=== PATIENT | female | born 1980 | race Caucasian/White ===

== ENCOUNTER → 2016-04-13 | Outpatient (CLI) | payer OTHER ==
--- NOTE | 2016-04-13 11:23 | US ---
Dear Josselyn Zabala MD I had the pleasure of seeing your patient, INEZ BENZ, in Cardiology Clinic today. As you know, INEZ BENZ is a 35 year old woman with an intrauterine at approximately 32 wee ks gestation. We were asked to see her in consultation due to family history of congenital heart dise ase. Specifically, her son was born with a ventricular septal defect. Past Medical History: non-contributory Medications: None Family history: As above. Her son, Henry, was born with a ventricular septal defect in [place]. He h as not required surgical intervention for the VSD. Social History: She is and lives with her and son in [place]. Echocardiogram: A complete 2D and Doppler echocardiogram was performed with good image quality. This reveals a four-chamber heart correctly oriented in the left chest. There is normal segmental cardiac anatomy. There is no evidence of chamber enlargement or hypertrophy. The aorta and pulmonary artery are arias ectly oriented. The mitral, tricuspid, aortic and pulmonic valves are visualized and are unremarkabl e by Doppler interrogation. The aortic arch and ductal arch are of normal caliber with normal flow p atterns across both the ductus arteriosus and aortic arch. Two superior pulmonary veins are seen ent ering the left atrium in normal fashion. There is a normal right to left flow pattern across the pat ent foramen ovale with the flap of the foramen ovale seen in the left atrium. The heart rate i s within normal limits for gestational age. There is normal atrioventricular mechanical synchrony wi th no dysrhythmia was noted throughout the duration of the study. There is no pericardial effusion. This study cannot rule out subtle atrial or ventricular septal defects. Impression: This is a normal echocardiogram for gestational age. I discussed these findings in detail with INEZ BENZ and attempted to answer her questions to th e best of my ability. We specifically discussed the limitations of echocardiography in diagnosi ng small septal defects, minor valve abnormalities, and problems that may present after the transitio n to life such as coarctation of the aorta. Despite these limitations, I have not scheduled her for any further follow-up in Cardiology Cli [facility], however I would be more than happy to see her again at any time should any further concerns deidre e. I have also not recommended any alteration to her pre or care. Should there be any con cerns regarding the cardiovascular system after the baby is born, we would be happy to re-evaluate th e infant at anytime. Thank you very much for allowing me to participate in INEZ BENZ 's care. Please do not hesitat e to contact my office if I can be of any further assistance. My office number is [phone] or my cell phone is [phone]. Sincerely yours, Julieth Vazquez MD Interface Developer of Pediatrics, Pediatric Cardiology [facility] Note: Greater than 50% of this visit was spent in direct [id number] contact and counseling. Total v isit length was 30 minutes.
== END ==
LOC: FIMAGING 09:09
PROVIDERS: ATTEND Obstetrics & Gynecology
DX: O09.893 Supervision of other high risk pregnancies, third trimester (principal); Z3A.32 32 weeks gestation of pregnancy; Z82.49 Family history of ischemic heart disease and other diseases of the circulatory system

== ENCOUNTER → 2016-05-11 | Outpatient (CLI) | payer OTHER | LOC: FIMAGING 09:53 | PROVIDERS: ATTEND Obstetrics & Gynecology | DX: Z36 Encounter for antenatal screening of mother (principal); O34.219 Maternal care for unspecified type scar from previous cesarean delivery; Z3A.36 36 weeks gestation of pregnancy ==

== ENCOUNTER 2016-05-28 05:41 | Inpatient (IN) | payer OTHER ==
[2016-05-28] MEDS ORDERED: LR 500 ML IV ONE (05:53)
[2016-05-28] MEDS ORDERED: ceFAZolin 2 GM/DEXTROSE 100 ML IV ONE (05:53)
[2016-05-28] MEDS ORDERED: CITRIC ACID/SODIUM CITRATE 30 ML UDCUP PO ONE (05:53)
[2016-05-28] MEDS ORDERED: LR 1,000 ML IV SCH (06:00)
[2016-05-28] MEDS ORDERED: OXYTOCIN 10 UNIT/ML VIAL ONE (06:20)
[2016-05-28] MEDS ORDERED: MISOPROSTOL 200 MCG TAB ONE (06:20)
[2016-05-28 06:22] LABS: % IMMATURE GRANULYOCYTES 0.4 % (0.0-1.1); ABSOLUTE IMMATURE GRANULOCYTES 0.04 10^3/uL (0.00-0.10); ADD DIFF? NO; ADD MORPH? NO; ADD SCAN? NO; ATYPICAL LYMPHOCYTE FLAG 0 (0-99); FRAGMENT RBC FLAG 0 (0-99); HEMATOCRIT 38.7 % (38.0-47.0); HEMOGLOBIN 13.4 g/dL (12.6-16.3); LEFT SHIFT FLG 0 (0-99); LIPEMIA HEMOLYSIS FLAG 90 (0-99); MEAN CELL HEMOGLOBIN 31.2 pg (27.9-34.1); MEAN CELL HEMOGLOBIN CONCENTR. 34.6 g/dL (32.4-36.7); MEAN PLATELET VOLUME 10.6 fL (8.7-11.7); PLATELET CLUMPS FLAG 0 (0-99); PLATELET COUNT 212 10^3/uL (150-400); RED CELL DISTRIBUTION WIDTH 12.9 % (11.5-15.2)
[2016-05-28] MEDS ORDERED: fentaNYL 100 MCG/2 ML INJ ONE (07:33)
[2016-05-28] MEDS ORDERED: morphINE PF 5 MG/10 ML INJ ONE (07:33)
[2016-05-28] MEDS ORDERED: PROMETHAZINE HCL 25 MG/ML INJ IVP PRN (07:44)
[2016-05-28] MEDS ORDERED: SIMETHICONE 80 MG TAB CHEW PO PRN (07:44)
[2016-05-28] MEDS ORDERED: OXYTOCIN 100 UNITS/10 ML VIAL ONE (08:22)
[2016-05-28] MEDS ORDERED: PHENYLEPHRINE HCL 100 MCG/ML SYR ONE (08:22)
[2016-05-28] MEDS ORDERED: ONDANSETRON 4 MG/2 ML VIAL ONE ×2 (08:22)
--- NOTE | 2016-05-28 08:48 | OBPROC ---
- Delivery Pre-op Diagnoses: repeat C/S Post-op Diagnoses: repeat C/S Procedure: Repeat Surgeon: Josselyn Zabala Bean Sprout Grower: Chanel Fatima Anesthesiologist: Marquis Rios Marketing Services Manager/MEDICAL GRADE SHOEMAKER: Tracy Carlos Anesthesia: Spinal Complications: None IV Fluid (ml): 3,000 EBL: 1000 - [place] Info Infant A Delivery Date: 05/28/16 Delivery Time: 08:27 Sex of Infant: Male Score (1 Min): 7 Score (5 Min): 9
[2016-05-28] MEDS ORDERED: OXYTOCIN/RINGERS LACTATE 20 UNIT/1,000 ML BAG IV ONE (09:01)
--- NOTE | 2016-05-28 09:47 | GOP ---
DATE OF OPERATION: 05/28/2016 SURGEON: Josselyn Cantor MD CUSTOMER SOLUTIONS COORDINATOR: Chanel Fatima, certified nurse field mechanic. PREOPERATIVE DIAGNOSIS: Intrauterine at 39 and 0/7th weeks gestation with previous section. Desires repeat. POSTOPERATIVE DIAGNOSIS: Intrauterine at 39 and 0/7th weeks gestation with previous section. Desires repeat. PROCEDURE PERFORMED: Repeat low-transverse section. FINDINGS: Dense adhesions of the rectus abdominal muscles to the uterus. Otherwise normal uterus, fallopian tubes, and ovaries. Viable male infant, Apgars 8 and 9. Clear amniotic fluid. ESTIMATED BLOOD LOSS: 800 mL. INDICATIONS: Jocelyn is a 35-year-old, G2, P1, female, who is at 39 and 0/7th weeks gestation, who desired repeat section. The patient was taken the operating room where she was prepped and draped in normal sterile fashion in the dorsal supine position, with a leftward tilt. The patient received 2 g of Ancef preoperatively. A Pfannenstiel skin incision was made with a scalpel and carried through to the underlying fascia. The fascia was incised in the midline with the Bovie cautery. The fascial incision was extended laterally. The superior aspect of the fascia was grasped with Ashely clamps. The rectus muscle was dissected off bluntly and with the Bovie cautery. The inferior aspect of the fascia was grasped with Ashely clamps. The rectus muscle was dissected off bluntly and with the Bovie cautery. The uterus was densely adhered to the posterior aspect of the rectus abdominal sheath that was taken off with careful dissection, with the Metzenbaum and Leiva scissors. The peritoneum was then identified and entered bluntly. The bladder blade was placed. The vesicouterine peritoneum was incised with the Metzenbaum scissors. A bladder flap was created digitally. The bladder blade was replaced. The uterus was incised with a scalpel. The uterine incision was extended laterally and the amniotic sac was ruptured. The was delivered. The cord was clamped and cut. The infant was handed to the waiting nurse practitioner. The placenta was delivered spontaneously. The uterus was exteriorized and cleared of all clots and debris. The uterine incision was reapproximated with 0 Monocryl in a running, locked fashion in 2 layers. At the site of the dissection of the uterus from the abdominal wall, there was a defect in the serosa and wall of the uterus that was reapproximated with 0 Monocryl in a running, locked fashion. The gutters were cleared of all clots and debris. The uterus was returned to the abdomen and cleared of all clots and debris. The uterine incision was reinspected and noted to be hemostatic. The subfascial spaces were inspected and noted to be hemostatic. The fascia was reapproximated with 0 Vicryl in a running fashion. The subcutaneous tissue was irrigated and closed with 3-0 Monocryl. The skin was closed with 4-0 Monocryl. All counts were correct x2. DESCRIPTION OF PROCEDURE: COMPLICATIONS: None. OUTCOME: Stable to the recovery room. /[id number]/MODL MTDD
[2016-05-28] MEDS ORDERED: ONDANSETRON 4 MG/2 ML VIAL IVP PRN (09:53)
[2016-05-28] MEDS ORDERED: NALOXONE HCL 0.4 MG/ML INJ IVP PRN (09:53)
[2016-05-28] MEDS ORDERED: PHENYLEPHRINE HCL 100 MCG/ML SYR IVP PRN (09:53)
--- NOTE | 2016-05-28 09:58 | POSTANESTH ---
Post Anesthetic Evaluation Cardiovascular Status: Normal, Stable Respiratory Status: Normal, Stable, Similar to Pre-op Cond. Level of Consciousness/Mental Status: Can Participate in Eval, Alert and Oriented Pain Control: Adequate, Prn Tx Ordered Nausea/Vomiting Control: Adequate, Prn Tx Ordered Complications Possibly Related to Anesthesia: None Noted (Tolerated spinal well , BP treated, comfortable for surgery, to PACU, no pain or nausea.)
--- NOTE | 2016-05-28 10:00 | PREANESOB ---
Obstetric Pre-Anesthesia Info - General Info Proposed Procedure: Repeat C Section. : 3 Para: 1 WBD: 39 - Info Status: Full Term Monitors: External FHR Baseline (bpm): 130 FHR Pattern: Reassuring - Labor Status Section History: Repeat Indications for Current Section: Elective/Repeat Labor Epidural: No Anesthesia ROS: Prior C Section with epidural? Allergies/Adverse Reactions: Allergy/AdvReac Type Severity Reaction Status Date / Time No Known Allergies Allergy Verified 05/28/16 05:53 Visit Medications: Generic Name Dose Route Start Last Admin Trade Name Freq PRN Reason Stop Dose Admin Hydrocodone Bitart/Acetaminophen 1 - 2 tab 05/28/16 07:44 [place] 5/325 PO 06/07/16 07:43 Q4HRS PRN Pain, Moderate Diphenhydramine HCl 25 - 50 mg 05/28/16 09:53 Benadryl Injection IVP 11/24/16 09:52 Q6HRS PRN Itching Docusate Sodium 100 mg 05/28/16 07:44 Colace PO 11/24/16 07:43 BID PRN Constipation Lactated Ringer's 1,000 mls @ 125 mls/hr 05/28/16 06:00 Lr IV 11/24/16 05:59 CONT ED Ibuprofen 600 mg 05/28/16 07:44 Motrin PO 11/24/16 07:43 Q6HRS PRN Inflammation Ketorolac Tromethamine 30 mg 05/28/16 12:00 Toradol IVP 05/29/16 06:01 Q6HRS ED Naloxone HCl 0.4 mg 05/28/16 09:53 Narcan IVP 05/29/16 09:55 PRN PRN respiratory depression Ondansetron HCl 4 mg 05/28/16 09:53 Zofran IVP 11/24/16 09:52 Q4HRS PRN Nausea/Vomiting, Can't Take PO Phenylephrine HCl 100 mcg 05/28/16 09:53 Marvin-Synephrine IVP 05/28/16 10:54 Q1M PRN Hypotension Promethazine HCl 25 mg 05/28/16 07:44 Phenergan IVP 11/24/16 07:43 Q6HRS PRN Nausea/Vomiting, Use 1st Simethicone 80 mg 05/28/16 07:44 Mylicon PO 11/24/16 07:43 .TIDMEALS AND HS PRN Gas Discontinued Medications Generic Name Dose Route Start Last Admin Trade Name Noni PRN Reason Stop Dose Admin Citric Acid/Sodium Citrate 30 ml 05/28/16 05:53 Bicitra PO 05/28/16 05:54 ONCALL ONE Diphenhydramine HCl Confirm 05/28/16 09:05 Benadryl Injection Administered 05/28/16 09:06 Dose 50 mg .ROUTE .STK-MED ONE Fentanyl Confirm 05/28/16 07:33 Sublimaze Administered 05/28/16 07:34 Dose 100 mcg .ROUTE .STK-MED ONE Cefazolin Sodium/Dextrose 100 mls @ 200 mls/hr 05/28/16 05:53 Ancef 2 Gm (Premix) IV 05/28/16 06:22 ONCALL ONE Protocol Lactated Ringer's 500 mls @ 0 mls/hr 05/28/16 05:53 Lr IV 05/28/16 05:54 ONCE ONE As Directed Misoprostol Confirm 05/28/16 06:20 Cytotec Administered 05/28/16 06:21 Dose 1,000 mcg .ROUTE .STK-MED ONE Morphine Sulfate Confirm 05/28/16 07:33 Morphine Pf 5 Mg/10 Ml Administered 05/28/16 07:34 Dose 5 mg .ROUTE .STK-MED ONE Ondansetron HCl Confirm 05/28/16 08:22 Zofran Administered 05/28/16 08:23 Dose 4 mg .ROUTE .STK-MED ONE Ondansetron HCl Confirm 05/28/16 08:22 Zofran Administered 05/28/16 08:23 Dose 4 mg .ROUTE .STK-MED ONE Oxytocin Confirm 05/28/16 06:20 Pitocin Administered 05/28/16 06:21 Dose 30 unit .ROUTE .STK-MED ONE Oxytocin Confirm 05/28/16 08:22 Pitocin Administered 05/28/16 08:23 Dose 100 units .ROUTE .STK-MED ONE Oxytocin/Lactated Ringer's Confirm 05/28/16 09:01 Pitocin 20 Units/Lr (Premix) Administered 05/28/16 09:02 Dose 20 unit IV .STK-MED ONE Phenylephrine HCl Confirm 05/28/16 08:22 Marvin-Synephrine Administered 05/28/16 08:23 Dose 1,000 mcg .ROUTE .STK-MED ONE - Anesthesia History Response to Local Anesthetics: Normal Anesthesia & Operative History: No Prior Problems Family Anesthesia History: Negative - Social History Substance Use/Abuse: Denies - Focused Exam Blood Pressure: 123/70 Heart Rate: 85 Respiratory Rate: 16 Height/Weight (Nursing): Height 157.48 cm Weight 72.575 kg Physical Exam: Within normal limits. ASA Status: II Labs: 05/28/16 06:00 Patient ABO/Rh A POSITIVE 05/28/16 06:00 - Plan Anesthetic Plan: SAB Consent Signed and on Chart: Yes Patient/Guardian Understands and Agrees to Plan: Yes
[2016-05-28] MEDS ORDERED: KETOROLAC 30 MG/1 ML SDV ONE (10:17)
[2016-05-28] MEDS: KETOROLAC 30 MG/1 ML SDV IVP SCH ×3 (10:23→23:50)
[2016-05-28] MEDS: HYDROCODONE/APAP 5/325 TAB PO PRN ×3 (12:12→20:35)
[2016-05-28 16:45] VITALS: RESP 16
[2016-05-28] MEDS: DOCUSATE SODIUM 100 MG CAP PO PRN (20:35)
--- NOTE | 2016-05-29 05:30 | SOAPPROG ---
SOAP Progress Note Assessment/Plan: Assessment: 35 yo s/p rltcs, pod 1, doing well. Plan: 05/29/16 05:29 Rh +, rubella immune. Routine postop care. Anticipate discharge home on Tuesday. Subjective: 35 yo s/p rltcs, pod 1, doing well. Pain well controlled, decreased lochia , . Objective: Vital Signs Temp Pulse Resp BP Pulse Ox 37.2 C 87 16 115/69 93 05/29/16 00:30 05/29/16 00:30 05/29/16 00:30 05/29/16 00:30 05/29/16 00:30 Laboratory Results 05/28/16 06:00 05/27/16 05/28/16 05/29/16 05:59 05:59 05:59 Intake Total 4050 Output Total 2700 Balance 1350 Physical Exam - Physical Exam General Appearance: no apparent distress Respiratory: lungs clear Cardiac/Chest: regular rate, rhythm Abdomen: non-tender Skin: warm/dry Extremities: non-tender Neuro/Psych: oriented x 3 ICD10 Worksheet Patient Problems: Problems Problem Status Onset Previous section Acute Previous section complicating , with delivery Acute
[2016-05-29] MEDS: KETOROLAC 30 MG/1 ML SDV IVP SCH (05:59)
[2016-05-29] MEDS: HYDROCODONE/APAP 5/325 TAB PO PRN ×4 (06:10→22:06)
[2016-05-29] MEDS: DOCUSATE SODIUM 100 MG CAP PO PRN (10:17)
[2016-05-29] MEDS: IBUPROFEN 600 MG TAB PO PRN (12:21)
[2016-05-29] MEDS ORDERED: EPSOM SALT 454 GM TP ONE (16:41)
[2016-05-29] MEDS: DIPHENOXYLATE/ATROPINE LOMOTIL 1 TAB PO PRN ×2 (16:56→21:23)
[2016-05-29] MEDS ORDERED: LR 1,000 ML IV ONE (18:07)
[2016-05-29] MEDS ORDERED: PROMETHAZINE HCL 25 MG in LR 1,000 ML IV ONE (19:00)
[2016-05-29] MEDS ORDERED: KETOROLAC 30 MG/1 ML SDV IVP ONE (19:56)
[2016-05-29 20:07] LABS: % IMMATURE GRANULYOCYTES 0.5 % (0.0-1.1); ABSOLUTE IMMATURE GRANULOCYTES 0.08 10^3/uL (0.00-0.10); ADD DIFF? NO; ADD MORPH? NO; ADD SCAN? NO; ATYPICAL LYMPHOCYTE FLAG 0 (0-99); FRAGMENT RBC FLAG 0 (0-99); HEMATOCRIT 37.8 % (38.0-47.0); HEMOGLOBIN 12.8 g/dL (12.6-16.3); LEFT SHIFT FLG 0 (0-99); LIPEMIA HEMOLYSIS FLAG 90 (0-99); MEAN CELL HEMOGLOBIN 31.1 pg (27.9-34.1); MEAN CELL HEMOGLOBIN CONCENTR. 33.9 g/dL (32.4-36.7); MEAN CELL VOLUME 91.7 fL (81.5-99.8); MEAN PLATELET VOLUME 10.3 fL (8.7-11.7); PLATELET CLUMPS FLAG 20 (0-99); PLATELET COUNT 220 10^3/uL (150-400); RED BLOOD CELL COUNT 4.12 10^6/uL (4.18-5.33); RED CELL DISTRIBUTION WIDTH 13.1 % (11.5-15.2)
[2016-05-29] MEDS: ONDANSETRON 4 MG/2 ML VIAL IVP SCH (20:08)
[2016-05-29 20:56] LABS: ALANINE AMINOTRANSFERASE 35 IU/L (9-52); ALBUMIN 3.4 g/dL (3.5-5.0); ALKALINE PHOSPHATASE 153 IU/L (38-126); ANION GAP 9 mEq/L (8-16); ASPARTATE AMINOTRANSFERASE 31 IU/L (14-46); BILIRUBIN,TOTAL 0.5 mg/dL (0.1-1.4); CALCIUM 9.2 mg/dL (8.5-10.4); CARBON DIOXIDE 23 mEq/l (22-31); CHLORIDE 105 mEq/L (97-110); CREATININE 0.6 mg/dL (0.6-1.0); GLOMERULAR FILTRATION RATE > 60; GLUCOSE 80 mg/dL (70-100); POTASSIUM 4.3 mEq/L (3.5-5.2); SODIUM 137 mEq/L (134-144); TOTAL PROTEIN 6.6 g/dL (6.3-8.2)
[2016-05-30] MEDS: IBUPROFEN 600 MG TAB PO PRN ×2 (02:27→08:16)
[2016-05-30] MEDS: HYDROCODONE/APAP 5/325 TAB PO PRN ×2 (02:28→08:19)
[2016-05-30] MEDS: ONDANSETRON 4 MG/2 ML VIAL IVP SCH ×3 (05:09→10:41)
[2016-05-30 05:39] LABS: % IMMATURE GRANULYOCYTES 0.3 % (0.0-1.1); ABSOLUTE IMMATURE GRANULOCYTES 0.04 10^3/uL (0.00-0.10); ADD DIFF? NO; ADD MORPH? NO; ADD SCAN? NO; ATYPICAL LYMPHOCYTE FLAG 0 (0-99); FRAGMENT RBC FLAG 0 (0-99); HEMATOCRIT 32.9 % (38.0-47.0); HEMOGLOBIN 11.1 g/dL (12.6-16.3); LEFT SHIFT FLG 0 (0-99); LIPEMIA HEMOLYSIS FLAG 80 (0-99); MEAN CELL HEMOGLOBIN CONCENTR. 33.7 g/dL (32.4-36.7); MEAN CELL VOLUME 91.9 fL (81.5-99.8); MEAN PLATELET VOLUME 10.1 fL (8.7-11.7); PLATELET CLUMPS FLAG 0 (0-99); PLATELET COUNT 221 10^3/uL (150-400); RED BLOOD CELL COUNT 3.58 10^6/uL (4.18-5.33); RED CELL DISTRIBUTION WIDTH 13.2 % (11.5-15.2)
[2016-05-30 06:14] LABS: ALANINE AMINOTRANSFERASE 31 IU/L (9-52); ALBUMIN 2.6 g/dL (3.5-5.0); ALKALINE PHOSPHATASE 121 IU/L (38-126); ANION GAP 5 mEq/L (8-16); ASPARTATE AMINOTRANSFERASE 25 IU/L (14-46); BILIRUBIN,TOTAL 0.4 mg/dL (0.1-1.4); CALCIUM 8.7 mg/dL (8.5-10.4); CARBON DIOXIDE 23 mEq/l (22-31); CHLORIDE 109 mEq/L (97-110); CREATININE 0.6 mg/dL (0.6-1.0); GLOMERULAR FILTRATION RATE > 60; GLUCOSE 84 mg/dL (70-100); POTASSIUM 4.1 mEq/L (3.5-5.2); SODIUM 137 mEq/L (134-144); TOTAL PROTEIN 5.4 g/dL (6.3-8.2)
[2016-05-30 09:11] VITALS: BP 129/70; PULSE 113; TEMP 98; O2SAT 98
--- NOTE | 2016-05-30 10:13 | SOAPPROG ---
SOAP Progress Note Assessment/Plan: Assessment: 35 yo s/p rltcs, pod 1, doing well with nausea, vomiting, diarrhea yesterday, resolved now. Plan: Rh +, rubella immune. Routine postop care. Anticipate discharge home today or tomorrow. Labs normal from evaluation of gastroenteritis, c diff neg. 05/30/16 10:12 Subjective: 35 yo s/p rltcs, pod 1, doing well with nausea, vomiting, diarrhea yesterday, resolved now. Objective: Vital Signs Temp Pulse Resp BP Pulse Ox 36.7 C 113 H 16 129/70 H 98 05/30/16 09:11 05/30/16 09:11 05/30/16 09:11 05/30/16 09:11 05/30/16 09:11 Laboratory Results 05/30/16 05:25 05/30/16 05:25 05/29/16 05/30/16 05/31/16 05:59 05:59 05:59 Intake Total 4050 Output Total 2700 1650 Balance 1350 -1650 Physical Exam - Physical Exam General Appearance: no apparent distress Respiratory: lungs clear Cardiac/Chest: regular rate, rhythm Abdomen: non-tender Skin: warm/dry Extremities: non-tender Neuro/Psych: oriented x 3 ICD10 Worksheet Patient Problems: Problems Problem Status Onset Previous section Acute Previous section complicating , with delivery Acute
[2016-05-30] MEDS ORDERED: ONDANSETRON DISINTEGRATING 4 MG TAB PO PRN (10:30)
== END 2016-05-30 12:10 | disposition home or self-care (01) | DRG 766 ==
LOC: FLD 05:41 → FOB 11:26
PROVIDERS: ADMIT Obstetrics & Gynecology; ATTEND Obstetrics & Gynecology
PROC: 10D00Z1 Extraction of Products of Conception, Low, Open Approach (ICD-10-PCS; principal; 2016-05-28)
DX: O34.211 Maternal care for low transverse scar from previous cesarean delivery (principal); Z3A.39 39 weeks gestation of pregnancy; Z37.0 Single live birth
CPT/HCPCS: J0690; J1200; J1885; J2274; J2370; J2405; J2550; J2590; J3010